=== PATIENT | female | born 1945 | race Caucasian/White ===

== ENCOUNTER → 2017-05-07 | Outpatient (REF) | payer OTHER ==
[2017-05-07 13:29] LABS: EOS # 0.1 K/mm3 (0.0-0.50); EOS % 2.2 % (0.0-3.0); LARGE UNSTAINED CELL # 0.1 K/mm3 (0.0-0.4); LARGE UNSTAINED CELL % 2.2 % (0.0-4.0); LYMPH # 1.4 K/mm3 (1.5-4.5); LYMPH % 30.3 % (24.0-44.0); MEAN CORPUSCULAR HEMOGLOBIN 31.3 pg (27.0-33.0); MEAN CORPUSCULAR HGB CONC 34.7 g/dl (32.0-36.5); MEAN CORPUSCULAR VOLUME 90.1 fl (80.0-96.0); MONO # 0.2 K/mm3 (0.0-0.8); MONO % 4.9 % (0.0-5.0); NEUTROPHILS # 2.7 K/mm3 (1.8-7.7); NEUTROPHILS % 59.5 % (36.0-66.0); PLATELET COUNT, AUTOMATED 248 k/mm3 (150-450); RED CELL DISTRIBUTION WIDTH 12.6 % (11.5-14.5); WHITE BLOOD COUNT 4.5 K/mm3 (4.0-10.0)
[2017-05-07 14:01] LABS: ALBUMIN 4.2 GM/DL (3.2-5.2); ALBUMIN/GLOBULIN RATIO 1.35 (1.00-1.93); ALKALINE PHOSPHATASE 66 U/L (45-117); ALT/SGPT 34 U/L (12-78); ANION GAP 7 MEQ/L (8-16); AST/SGOT 22 U/L (15-37); BILIRUBIN,TOTAL 0.4 MG/DL (0.2-1.0); BLOOD UREA NITROGEN 17 MG/DL (7-18); CALCIUM LEVEL 9.2 MG/DL (8.8-10.2); CARBON DIOXIDE LEVEL 28 MEQ/L (21-32); CHLORIDE LEVEL 106 MEQ/L (98-107); CHOLESTEROL LEVEL 269 MG/DL (<200); CREATININE FOR GFR 0.72 MG/DL (0.55-1.02); GLOMERULAR FILTRATION RATE > 60.0 (>39); GLUCOSE, FASTING 109 MG/DL (83-110); POTASSIUM SERUM 4.4 MEQ/L (3.5-5.1); SODIUM LEVEL 141 MEQ/L (136-145); TOTAL PROTEIN 7.3 GM/DL (6.4-8.2); TRIGLYCERIDES LEVEL 212 MG/DL (<150)
== END ==
LOC: M SFHCPLAZ 10:05
PROVIDERS: ATTEND Nurse Practitioner Family
DX: I10 Essential (primary) hypertension (principal); E78.4 Other hyperlipidemia
CPT/HCPCS: 36415; 80053; 80061; 82043; 84443; 85025; G0463

== ENCOUNTER → 2017-05-16 | Outpatient (CLI) | payer OTHER ==
--- NOTE | 2017-05-16 08:48 | REPMRS ---
Patient History The patient states she has not had a clinical breast exam in over a year. Patient is postmenopausal. Family history of colorectal cancer in father at age 50 or over, breast cancer in mother at age 50 or over, prostate cancer in brother at age 84, and prostate cancer in brother at age 50 or over. Digital Woman Screen Mammo: May 16, 2017 - Exam #: [id number] Bilateral CC and MLO view(s) were taken. Technologist: Chela Escobar, Technologist Prior study comparison: May 15, 2016, digital woman screen mammo performed at [facility]. June 07, 2015, digital woman screen mammo performed at [facility]. May 26, 2014, digital woman screen mammo performed at [facility]. FINDINGS: There are scattered fibroglandular densities. There is a moderate amount of residual fibroglandular tissue which is fairly symmetric. There is no interval development of dominant mass, architectural distortion, or clustered microcalcification typical of malignancy. There has been no change in the appearance of the mammogram from the prior studies. ASSESSMENT: BI-RADS/ACR category 1 mammogram. Negative. Recommendation Routine screening mammogram of both breasts in 1 year (for women over age 40). This mammogram was interpreted with the aid of an FDA-approved computer-aided dectection system. Electronically Signed By: Cedric Coker MD 05/16/17 0886
== END ==
LOC: M WHC 07:53
PROVIDERS: ATTEND Nurse Practitioner Family
DX: Z12.31 Encounter for screening mammogram for malignant neoplasm of breast (principal); Z80.3 Family history of malignant neoplasm of breast

== ENCOUNTER → 2017-10-27 | Outpatient (REF) | payer OTHER | LOC: M SFHCPLAZ 09:17 | PROVIDERS: ATTEND Nurse Practitioner Family | DX: Z12.11 Encounter for screening for malignant neoplasm of colon (principal); Z23 Encounter for immunization ==

== ENCOUNTER → 2018-05-06 | Outpatient (REF) | payer OTHER ==
[2018-05-06 13:16] LABS: ALBUMIN/GLOBULIN RATIO 1.25 (1.00-1.93); ALKALINE PHOSPHATASE 57 U/L (45-117); ALT/SGPT 36 U/L (12-78); ANION GAP 7 MEQ/L (8-16); AST/SGOT 18 U/L (7-37); BILIRUBIN,TOTAL 0.4 MG/DL (0.2-1.0); BLOOD UREA NITROGEN 15 MG/DL (7-18); CALCIUM LEVEL 8.8 MG/DL (8.8-10.2); CARBON DIOXIDE LEVEL 30 MEQ/L (21-32); CHLORIDE LEVEL 105 MEQ/L (98-107); CHOLESTEROL LEVEL 261 MG/DL (<200); GLOMERULAR FILTRATION RATE > 60.0 (>39); GLUCOSE, FASTING 107 MG/DL (70-100); HDL CHOLESTEROL 50 MG/DL (>40); LDL CHOLESTEROL 167.2 MG/DL (<100); NON-HDL-C 211 MG/DL; POTASSIUM SERUM 4.3 MEQ/L (3.5-5.1); SODIUM LEVEL 142 MEQ/L (136-145); TOTAL PROTEIN 7.2 GM/DL (6.4-8.2); TRIGLYCERIDES LEVEL 219 MG/DL (<150)
[2018-05-06 13:18] LABS: TOTAL 25(OH) VITAMIN D 25.9 NG/ML (30.0-100.0)
== END ==
LOC: M SFHCPLAZ 07:44
DX: Z00.00 Encounter for general adult medical examination without abnormal findings (principal); E78.4 Other hyperlipidemia; E55.9 Vitamin D deficiency, unspecified
CPT/HCPCS: 80053

== ENCOUNTER → 2018-05-18 | Outpatient (CLI) | payer OTHER | LOC: M WHC 08:45 | DX: Z12.31 Encounter for screening mammogram for malignant neoplasm of breast (principal) | CPT/HCPCS: 77067 ==

== ENCOUNTER 2018-08-15 01:55 | Emergency (ER) | payer OTHER ==
[2018-08-15] MEDS: NS 1,000 ML IV (03:25)
[2018-08-15] MEDS: diphenhydrAMINE INJ 50MG/ML VIAL (J1200) IV (03:25)
[2018-08-15] MEDS: HALOPERIDOL 5 MG/ML VIAL (J1630) IV (03:26)
== END 2018-08-15 05:04 | disposition home or self-care (01) ==
LOC: M ED 01:55
DX: H83.09 Labyrinthitis, unspecified ear (principal); I10 Essential (primary) hypertension; E78.5 Hyperlipidemia, unspecified; Z88.8 Allergy status to other drugs, medicaments and biological substances
CPT/HCPCS: J1200

== ENCOUNTER → 2019-05-03 | Outpatient (REF) | payer MEDICARE ==
[~2019-05-03] MED LIST: MECL-68 PO; OXYB5TAB10 PO
[2019-05-03 12:37] LABS: HEMATOCRIT 42.8 % (36.0-47.0); HEMOGLOBIN 14.7 g/dl (12.0-15.5); MEAN CORPUSCULAR HGB CONC 34.3 g/dl (32.0-36.5); MEAN CORPUSCULAR VOLUME 90.3 fl (80.0-96.0); PLATELET COUNT, AUTOMATED 230 10^3/uL (150-450); RED BLOOD COUNT 4.74 10^6/uL (4.00-5.40); WHITE BLOOD COUNT 4.4 10^3/uL (4.0-10.0)
[2019-05-03 12:43] LABS: ALBUMIN 4.2 GM/DL (3.2-5.2); ALT/SGPT 40 U/L (12-78); BILIRUBIN,TOTAL 0.4 MG/DL (0.2-1.0); BLOOD UREA NITROGEN 13 MG/DL (7-18); CALCIUM LEVEL 9.2 MG/DL (8.8-10.2); CARBON DIOXIDE LEVEL 26 MEQ/L (21-32); CHLORIDE LEVEL 107 MEQ/L (98-107); CHOLESTEROL LEVEL 253 MG/DL (<200); CHOLESTEROL RISK RATIO 4.517 (<5); CREATININE FOR GFR 0.74 MG/DL (0.55-1.30); GLOMERULAR FILTRATION RATE > 60.0 (>39); GLUCOSE, FASTING 105 MG/DL (70-100); HDL CHOLESTEROL 56 MG/DL (>40); LDL CHOLESTEROL 158 MG/DL (<100); NON-HDL-C 197 MG/DL; POTASSIUM SERUM 4.4 MEQ/L (3.5-5.1); SODIUM LEVEL 141 MEQ/L (136-145); TOTAL PROTEIN 7.3 GM/DL (6.4-8.2); TRIGLYCERIDES LEVEL 195 MG/DL (<150)
[2019-05-03 13:01] LABS: HEMOGLOBIN A1c 5.8 %
[2019-05-03 13:09] LABS: TOTAL 25(OH) VITAMIN D 32.7 NG/ML (30.0-100.0)
== END ==
LOC: M SFHCPLAZ 10:35
PROVIDERS: ATTEND Nurse Practitioner Family
DX: Z00.00 Encounter for general adult medical examination without abnormal findings (principal); E55.9 Vitamin D deficiency, unspecified; R73.01 Impaired fasting glucose; E78.5 Hyperlipidemia, unspecified

== ENCOUNTER → 2019-05-26 | Outpatient (CLI) | payer MEDICARE ==
--- NOTE | 2019-05-26 09:30 | REPMRS ---
Patient History The patient states she has not had a clinical breast exam in over a year. Family history of breast cancer at age 50 or over in mother, colorectal cancer at age 50 or over in father, prostate cancer at age 84 in brother, prostate cancer at age 50 or over in brother. Digital Woman Screen Mammo: May 26, 2019 - Exam #: [id number] Bilateral CC and MLO view(s) were taken. Technologist: Carlyn East, Technologist Prior study comparison: May 18, 2018, bilateral digital woman screen mammo performed at [facility]. May 16, 2017, digital woman screen mammo performed at [facility]. May 15, 2016, digital woman screen mammo performed at [facility]. FINDINGS: The breast tissue is heterogeneously dense. This may lower the sensitivity of mammography. There is a moderate amount of heterogeneously dense fibroglandular tissue which is fairly symmetric. There is no interval development of dominant mass, architectural distortion, or grouped microcalcification typical of malignancy. There has been no change in the appearance of the mammogram from the prior studies. 3-D tomosynthesis shows no additional findings. Assessment: BI-RADS/ACR category 1 mammogram. Negative Mammogram. Recommendation Routine screening mammogram of both breasts in 1 year (for women over age 40). This patient's Lifetime Breast Cancer RIsk is estimated at 5.0 %. This mammogram was interpreted with the aid of an FDA-approved computer-aided dectection system. Electronically Signed By: Cedric Coker MD 05/26/19 0929
== END ==
LOC: M WHC 07:20
PROVIDERS: ATTEND Nurse Practitioner Family
DX: Z12.31 Encounter for screening mammogram for malignant neoplasm of breast (principal)

== ENCOUNTER → 2019-10-11 | Outpatient (REF) | payer MEDICARE ==
[2019-10-11 12:10] LABS: ALT/SGPT 35 U/L (12-78); BILIRUBIN,TOTAL 0.5 MG/DL (0.2-1.0); BLOOD UREA NITROGEN 14 MG/DL (7-18); CALCIUM LEVEL 9.6 MG/DL (8.8-10.2); CARBON DIOXIDE LEVEL 27 MEQ/L (21-32); CHLORIDE LEVEL 105 MEQ/L (98-107); CHOLESTEROL LEVEL 271 MG/DL (<200); CHOLESTEROL RISK RATIO 5.113 (<5); CREATININE FOR GFR 0.77 MG/DL (0.55-1.30); GLOMERULAR FILTRATION RATE > 60.0 (>39); GLUCOSE, FASTING 110 MG/DL (70-100); HDL CHOLESTEROL 53 MG/DL (>40); LDL CHOLESTEROL 164 MG/DL (<100); MAGNESIUM LEVEL 2.1 MG/DL (1.8-2.4); NON-HDL-C 218 MG/DL; POTASSIUM SERUM 4.1 MEQ/L (3.5-5.1); SODIUM LEVEL 142 MEQ/L (136-145); TOTAL 25(OH) VITAMIN D 38.4 NG/ML (30.0-100.0); TOTAL PROTEIN 7.3 GM/DL (6.4-8.2); TRIGLYCERIDES LEVEL 272 MG/DL (<150)
[2019-10-11 12:39] LABS: HEMOGLOBIN A1c 5.5 %
== END ==
LOC: M SFHCPLAZ 09:47
PROVIDERS: ATTEND Nurse Practitioner Family
DX: R73.01 Impaired fasting glucose (principal); E78.5 Hyperlipidemia, unspecified; I10 Essential (primary) hypertension; E55.9 Vitamin D deficiency, unspecified

== ENCOUNTER → 2021-03-08 | Outpatient (REF) | payer MEDICARE ==
[~2021-03-08] MED LIST changes: -MECL-68 PO; +MECL1TAB31 PO
[2021-03-08 12:28] LABS: APPEARANCE, URINE HAZY (CLEAR); BACTERIA, URINE AUTO NEGATIVE (NEGATIVE); BILIRUBIN, URINE AUTO NEGATIVE (NEGATIVE); BLOOD, URINE BLOOD NEGATIVE (NEGATIVE); COLOR, URINE YELLOW (YELLOW); GLUCOSE, URINE (UA) AUTO NEGATIVE (NEGATIVE); KETONE, URINE AUTO NEGATIVE (NEGATIVE); LEUKOCYTE ESTERASE, URINE AUTO NEGATIVE (NEGATIVE); NITRITE, URINE AUTO NEGATIVE (NEGATIVE); PROTEIN, URINE AUTO NEGATIVE (NEGATIVE); RBC, URINE AUTO 1 /HPF (0-3); SPECIFIC GRAVITY URINE AUTO 1.012 (1.002-1.035); SQUAMOUS EPITHELIAL CELL UR AU 1 /HPF (0-6); UROBILINOGEN, URINE AUTO 0.2 mg/dL (0.0-2.0); WBC, URINE AUTO 1 /HPF (0-3)
== END ==
LOC: M LAB REF 11:50
PROVIDERS: ATTEND Obstetrics & Gynecology
DX: N39.41 Urge incontinence (principal); N32.81 Overactive bladder

== ENCOUNTER 2021-09-12 12:55 | Outpatient (CLI) | payer MEDICARE ==
[~2021-09-12] VITALS: Ht 154.9 cm; Wt 72.6 kg
[~2021-09-12 12:55] MED LIST changes: +ALBUTEROL 90 MCG/ACT 8GM HFA INHALER INH PRN; +ALBUTEROL SULFATE 2.5 MG/0.5 ML INH NEB SOLN INH PRN; +EPINEPHrine INJ 1 MG/ML 1ML AMP IM PRN; +NS 1,000 ML IV SCH; +diphenhydrAMINE 50MG/ML VIAL (J1200) IV PRN; +methylPREDNISolone 125MG 2ML VIAL IV PRN
[2021-09-12] MEDS ORDERED: CASIRIVIMAB (REGN10933) 600 MG, IMDEVIMAB (REGN10987) 600 MG in NS 250 ML IV ONE (13:00)
[2021-09-12 13:23] VITALS: BP 137/73
[2021-09-12 13:53] VITALS: BP 134/68
[2021-09-12 14:23] VITALS: BP 127/57
[2021-09-12 15:23] VITALS: BP 157/70
== END 2021-09-12 15:23 | disposition home or self-care (01) ==
LOC: M OPCLI4PR 12:55
PROVIDERS: ATTEND Pediatrics
DX: U07.1 COVID-19 (principal)

== ENCOUNTER → 2022-05-20 | Outpatient (CLI) | payer MEDICARE ==
[~2022-05-20] MED LIST changes: -ALBUTEROL 90 MCG/ACT 8GM HFA INHALER INH PRN; -ALBUTEROL SULFATE 2.5 MG/0.5 ML INH NEB SOLN INH PRN; -EPINEPHrine INJ 1 MG/ML 1ML AMP IM PRN; -NS 1,000 ML IV SCH; -diphenhydrAMINE 50MG/ML VIAL (J1200) IV PRN; -methylPREDNISolone 125MG 2ML VIAL IV PRN
== END ==
LOC: M WHC 08:26
PROVIDERS: ATTEND Pediatrics
DX: N95.9 Unspecified menopausal and perimenopausal disorder (principal); M85.852 Other specified disorders of bone density and structure, left thigh

== ENCOUNTER → 2022-09-18 | Outpatient (CLI) | payer MEDICARE | LOC: M WHC 06:59 | PROVIDERS: ATTEND Pediatrics | DX: Z12.31 Encounter for screening mammogram for malignant neoplasm of breast (principal) ==

== ENCOUNTER → 2022-09-25 | Outpatient (CLI) | payer MEDICARE | LOC: M WHC 15:11 | PROVIDERS: ATTEND Pediatrics | DX: R92.8 Other abnormal and inconclusive findings on diagnostic imaging of breast (principal) | CPT/HCPCS: 77065; G0279 ==

== ENCOUNTER → 2023-04-16 | Outpatient (REF) | payer MEDICARE ==
[2023-04-16 13:47] LABS: ALBUMIN 4.1 G/DL (3.2-5.2); ALKALINE PHOSPHATASE 68 U/L (46-116); ALT/SGPT 19 U/L (7.0-40); AST/SGOT 8 U/L (<34); BILIRUBIN,TOTAL 0.6 MG/DL (0.3-1.2); BLOOD UREA NITROGEN 13 MG/DL (9-23); CALCIUM LEVEL 9.7 MG/DL (8.3-10.6); CARBON DIOXIDE LEVEL 28 MMOL/L (20-31); CHLORIDE LEVEL 103 MMOL/L (98-107); CHOLESTEROL LEVEL 315 MG/DL (<200); CHOLESTEROL RISK RATIO 6.08 (<5); GLOMERULAR FILTRATION RATE > 60.0 (>39); GLUCOSE, FASTING 101 MG/DL (74-106); HDL CHOLESTEROL 51.8 MG/DL (>40); LDL CHOLESTEROL 205.6 MG/DL (<100); NON-HDL-C 263.2 MG/DL; POTASSIUM SERUM 4.2 MMOL/L (3.5-5.1); SODIUM LEVEL 139 MMOL/L (136-145); TRIGLYCERIDES LEVEL 288 MG/DL (<150)
== END ==
LOC: M LAB REF 12:31
PROVIDERS: ATTEND Pediatrics
DX: E78.00 Pure hypercholesterolemia, unspecified (principal)

== ENCOUNTER → 2023-09-29 | Outpatient (CLI) | payer MEDICARE ==
[~2023-09-29] MED LIST changes: +MECL-209 PO; -MECL1TAB31 PO; -OXYB5TAB10 PO; +OXYB5TAB11 PO
== END ==
LOC: M WHC 09:28
PROVIDERS: ATTEND Nurse Practitioner Family
DX: Z12.31 Encounter for screening mammogram for malignant neoplasm of breast (principal)

== ENCOUNTER → 2024-02-02 | Outpatient (REF) | payer MEDICARE ==
[~2024-02-02] MED LIST changes: -OXYB5TAB11 PO; +OXYB5TAB14 PO
[2024-02-02 17:45] LABS: CREATININE, URINE 240.3 MG/DL
[2024-02-02 19:31] LABS: BLOOD UREA NITROGEN 12 MG/DL (9-23); CALCIUM LEVEL 9.4 MG/DL (8.3-10.6); CARBON DIOXIDE LEVEL 28 MMOL/L (20-31); CHLORIDE LEVEL 105 MMOL/L (98-107); CREATININE FOR GFR 0.73 MG/DL (0.55-1.30); GLOMERULAR FILTRATION RATE > 60.0 (>39); GLUCOSE, FASTING 98 MG/DL (74-106); POTASSIUM SERUM 4.5 MMOL/L (3.5-5.1); SODIUM LEVEL 138 MMOL/L (136-145)
[2024-02-02 19:34] LABS: THYROID STIMULATING HORMONE 1.376 uIU/ML (0.55-4.78)
== END ==
LOC: M LAB REF 16:23
PROVIDERS: ATTEND Pediatrics
DX: I10 Essential (primary) hypertension (principal)

== ENCOUNTER 2024-05-29 15:42 | Emergency (ER) | payer MEDICARE ==
[~2024-05-29] VITALS: Ht 152.4 cm; Wt 76.8 kg
[2024-05-29] MEDS ORDERED: VESI5TAB2 PO (16:00)
[2024-05-29] MEDS ORDERED: GUAI1SOL2 PO (16:00)
[2024-05-29] MEDS: BENZONATATE 100MG CAPSULE PO ONE (17:08)
[2024-05-29] MEDS ORDERED: AZIT-12 PO (18:16)
[2024-05-29 18:26] VITALS: BP 163/79; TEMP 98.6; O2SAT 94
== END 2024-05-29 18:30 | disposition home or self-care (01) ==
LOC: M ED 15:42
DX: J06.9 Acute upper respiratory infection, unspecified (principal); Z91.048 Other nonmedicinal substance allergy status; Z79.2 Long term (current) use of antibiotics; Z79.899 Other long term (current) drug therapy

== ENCOUNTER 2024-06-01 12:22 | Emergency (ER) | payer MEDICARE ==
[~2024-06-01] VITALS: Ht 152.4 cm; Wt 77.3 kg
[~2024-06-01 12:22] MED LIST changes: +AZIT-12 PO; +GUAI1SOL2 PO; +VESI5TAB2 PO
[2024-06-01] MEDS ORDERED: LOSA25TA13 PO (12:31)
[2024-06-01 13:21] LABS: BASO % 0.6 % (0.0-1.0); EOS # 0.1 10^3/uL (0.0-0.5); EOS % 1.3 % (0.0-3.0); HEMATOCRIT 37.3 % (36.0-47.0); HEMOGLOBIN 12.9 g/dl (12.0-15.5); LYMPH # 1.4 10^3/uL (1.5-5.0); LYMPH % 26.6 % (24.0-44.0); MEAN CORPUSCULAR HEMOGLOBIN 30.7 pg (27.0-33.0); MEAN CORPUSCULAR HGB CONC 34.6 g/dl (32.0-36.5); MEAN CORPUSCULAR VOLUME 88.8 fl (80.0-96.0); MONO # 0.4 10^3/uL (0.0-0.8); MONO % 8.3 % (2.0-8.0); NEUTROPHILS # 3.3 10^3/uL (1.5-8.5); NEUTROPHILS % 62.8 % (36.0-66.0); PLATELET COUNT, AUTOMATED 274 10^3/uL (150-450); WHITE BLOOD COUNT 5.3 10^3/uL (4.0-10.0)
[2024-06-01 13:57] LABS: BLOOD UREA NITROGEN 16 MG/DL (9-23); CALCIUM LEVEL 8.9 MG/DL (8.3-10.6); CARBON DIOXIDE LEVEL 26 MMOL/L (20-31); CHLORIDE LEVEL 103 MMOL/L (98-107); CK-MB VALUE MASS < 1.0 NG/ML (<3.6); CREATININE FOR GFR 0.74 MG/DL (0.55-1.30); GLOMERULAR FILTRATION RATE > 60.0 (>39); GLUCOSE, FASTING 100 MG/DL (74-106); POTASSIUM SERUM 4.4 MMOL/L (3.5-5.1); SODIUM LEVEL 137 MMOL/L (136-145)
[2024-06-01 13:59] LABS: CPK CREATINE PHOSPHOKINASE 88 U/L (34-145); MB/CK RELATIVE INDEX 1.13 (< OR =4)
[2024-06-01] MEDS ORDERED: ISOVUE-370 76% 100ML VIAL As Ordered ONE (14:16)
[2024-06-01 15:59] VITALS: O2SAT 97
[2024-06-01 16:00] VITALS: BP 108/58; TEMP 97.6; O2SAT 96
== END 2024-06-01 16:15 | disposition home or self-care (01) ==
LOC: M ED 12:22
DX: J06.9 Acute upper respiratory infection, unspecified (principal); R94.31 Abnormal electrocardiogram [ECG] [EKG]; Z91.048 Other nonmedicinal substance allergy status; Z79.2 Long term (current) use of antibiotics; Z79.899 Other long term (current) drug therapy
CPT/HCPCS: 36415; 71046; 71275; 80048; 82550; 82553; 84484; 85025; 85379; 87486; 87581; 87633; 87798; 93005; 99284; Q9967

== ENCOUNTER → 2024-09-30 | Outpatient (CLI) | payer MEDICARE ==
[~2024-09-30] MED LIST changes: +LOSA25TA13 PO
== END ==
LOC: M WHC 09:26
PROVIDERS: ATTEND Nurse Practitioner Family
DX: Z12.31 Encounter for screening mammogram for malignant neoplasm of breast (principal); R92.333 Mammographic heterogeneous density, bilateral breasts

== ENCOUNTER → 2024-09-30 | Outpatient (CLI) | payer MEDICARE | LOC: M WHC 09:27 | PROVIDERS: ATTEND Nurse Practitioner Family | DX: Z13.820 Encounter for screening for osteoporosis (principal); M81.0 Age-related osteoporosis without current pathological fracture; M85.88 Other specified disorders of bone density and structure, other site; Z12.31 Encounter for screening mammogram for malignant neoplasm of breast; R92.333 Mammographic heterogeneous density, bilateral breasts ==

== ENCOUNTER → 2025-06-07 | Outpatient (REF) | payer MEDICARE, MEDICAID ==
[2025-06-07 16:42] LABS: CREATININE, URINE 97.2 MG/DL; MALB URINE SIEMENS < 3.0 MG/L
[2025-06-07 17:22] LABS: CALCIUM LEVEL 8.9 MG/DL (8.3-10.6); CARBON DIOXIDE LEVEL 29.0 MMOL/L (20-31); CHLORIDE LEVEL 103.0 MMOL/L (98-107); CHOLESTEROL LEVEL 263.0 MG/DL (<200); CHOLESTEROL RISK RATIO 4.63 (<5); CREATININE FOR GFR 0.71 MG/DL (0.55-1.30); GLOMERULAR FILTRATION RATE 87.0 (>39); LDL CHOLESTEROL 175.4 MG/DL (<100); NON-HDL-C 206.2 MG/DL; POTASSIUM SERUM 4.2 MMOL/L (3.5-5.1); SODIUM LEVEL 143.0 MMOL/L (136-145); TRIGLYCERIDES LEVEL 154.0 MG/DL (<150)
[2025-06-07 17:25] LABS: TOTAL 25(OH) VITAMIN D 48.8 NG/ML (20.0-100.0)
== END ==
LOC: M LAB REF 13:55
PROVIDERS: ATTEND Pediatrics
DX: I10 Essential (primary) hypertension (principal); M81.0 Age-related osteoporosis without current pathological fracture; E78.2 Mixed hyperlipidemia

== ENCOUNTER → 2025-10-11 | Outpatient (REF) | payer MEDICARE, MEDICAID ==
[2025-10-11 16:10] LABS: BASO # 0.0 10^3/uL (0.0-0.2); BASO % 0.5 % (0.0-1.0); EOS # 0.1 10^3/uL (0.0-0.5); EOS % 1.6 % (0.0-3.0); LYMPH # 1.0 10^3/uL (1.5-5.0); LYMPH % 22.1 % (24.0-44.0); MONO # 0.3 10^3/uL (0.0-0.8); MONO % 7.2 % (2.0-8.0); NEUTROPHILS # 2.9 10^3/uL (1.5-8.5); NEUTROPHILS % 68.4 % (36.0-66.0); PLATELET COUNT, AUTOMATED 223 10^3/uL (150-450)
[2025-10-11 16:38] LABS: IRON (FE) 79.0 UG/DL (50-170); PERCENT SATURATION 26.9 % (13.2-45.0)
[2025-10-11 16:45] LABS: ESTIMATED AVERAGE GLUCOSE 114.0 MG/DL (60-110)
== END ==
LOC: M LAB REF 15:40
PROVIDERS: ATTEND Pediatrics
DX: E66.9 Obesity, unspecified (principal); R53.83 Other fatigue; Z79.899 Other long term (current) drug therapy

== ENCOUNTER 2025-10-27 09:48 | Emergency (ER) | payer MEDICARE, MEDICAID ==
[~2025-10-27] VITALS: Ht 152.4 cm; Wt 75.0 kg
[2025-10-27 09:52] VITALS: BP 146/80; TEMP 96.9; O2SAT 96
== END 2025-10-27 10:10 | disposition left against medical advice (07) ==
LOC: M ED 09:48
DX: Z53.21 Procedure and treatment not carried out due to patient leaving prior to being seen by health care provider (principal)